=== PATIENT | male | born 1995 ===

== ENCOUNTER 2018-11-25 05:05 | Emergency (ER) | payer OTHER ==
[2018-11-25] MEDS ORDERED: Sodium Chloride 0.9% 1,000 ML IV STA (05:22)
--- NOTE | 2018-11-25 05:24 | ED PDOC ---
Arrival/HPI - General Chief Complaint: Abdominal Pain Time Seen by Provider: 11/25/18 05:10 Historian: Patient - History of Present Illness Narrative History of Present Illness (Text): 11/25/18 05:21 Refugio Khan is a 23 year old male, with no significant past medical history, who presents to the emergency department complaining of nausea and vomiting. 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 Patient states tonight he has been experiencing abdominal cramping discomfort and nausea with multiple episodes of vomiting and watery diarrhea. Patient denies any fever, chills, chest pain, shortness of breath, urinary symptoms, back pain, neck pain, headache, dizziness, or any other complaints. Symptom Onset: Gradual Symptom Course: Unchanged Activities at Onset: Light Context: Home Past Medical History - Provider Review Nursing Documentation Reviewed: Yes - Infectious Disease Hx of Infectious Diseases: None - Cardiac Hx Cardiac Disorders: No - Pulmonary Hx Respiratory Disorders: No - Neurological Hx Neurological Disorder: No - HEENT Hx HEENT Disorder: No - Psychiatric Hx Substance Use: No - Surgical History Hx Appendectomy: Yes - Anesthesia Hx Anesthesia: No Family/Social History - Physician Review Nursing Documentation Reviewed: Yes Family/Social History: Unknown Family HX Smoking Status: Never Smoked Hx Alcohol Use: No Hx Substance Use: No Allergies/Home Meds Allergies/Adverse Reactions: Allergies No Known Allergies Allergy (Verified 11/25/18 05:17) Home Medications: Home Meds Medication Instructions Recorded Confirmed No Known Home Med 11/25/18 11/25/18 Review of Systems - Physician Review All systems were reviewed & negative as marked: Yes - Review of Systems Constitutional: Normal. absent: Fevers Eyes: Normal ENT: Normal Respiratory: Normal. absent: SOB, Cough Cardiovascular: Normal. absent: Chest Pain Gastrointestinal: Abdominal Pain, Diarrhea, Nausea, Vomiting Genitourinary Male: Normal. absent: Dysuria, Frequency, Hematuria, Urinary Output Changes Musculoskeletal: Normal. absent: Back Pain, Neck Pain Skin: Normal. absent: Rash Neurological: Normal. absent: Headache, Dizziness Endocrine: Normal Hemo/Lymphatic: Normal Psychiatric: Normal Physical Exam Vital Signs Reviewed: Yes Vital Signs Temp Pulse Resp BP Pulse Ox 11/25/18 05:16 97.9 F 82 18 120/87 98 Temperature: Afebrile Blood Pressure: Normal Pulse: Regular Respiratory Rate: Normal Appearance: Positive for: Well-Appearing, Non-Toxic, Comfortable Pain Distress: None Mental Status: Positive for: Alert and Oriented X 3 - Systems Exam Head: Present: Atraumatic, Normocephalic Pupils: Present: PERRL Extroacular Muscles: Present: EOMI Conjunctiva: Present: Normal Mouth: Present: Moist Mucous Membranes Neck: Present: Normal Range of Motion Respiratory/Chest: Present: Clear to Auscultation, Good Air Exchange. No: Respiratory Distress, Accessory Muscle Use Cardiovascular: Present: Regular Rate and Rhythm, Normal S1, S2. No: Murmurs Abdomen: Present: Tenderness (mild mid abdominal), Normal Bowel Sounds. No: Distention, Peritoneal Signs, Rebound, Guarding Back: Present: Normal Inspection Upper Extremity: Present: Normal Inspection. No: Cyanosis, Edema Lower Extremity: Present: Normal Inspection. No: Edema Neurological: Present: GCS=15, CN II-XII Intact, Speech Normal Skin: Present: Warm, Dry, Normal Color. No: Rashes Psychiatric: Present: Alert, Oriented x 3, Normal Insight, Normal Concentration Medical Decision Making ED Course and Treatment: 11/25/18 05:21 Impression: 23 year old male complaining of abdominal cramping, nausea, vomiting, and diarrhea tonight. Plan: -- Labs, lipase -- IV fluids -- Pepcid -- Zofran -- Toradol -- Reassess and disposition Progress Notes: 11/25/18 07:00 Case endorsed to /pending CT Abdomen/Pelvis/reassess/final disposition - Scribe Statement The provider has reviewed the documentation as recorded by the Rachel Mora Provider Scribe Attestation: All medical record entries made by the Scribe were at my direction and personally dictated by me. I have reviewed the chart and agree that the record accurately reflects my personal performance of the history, physical exam, medical decision making, and the department course for this patient. I have also personally directed, reviewed, and agree with the discharge instructions and di sposition. Disposition/Present on Arrival - Present on Arrival Any Indicators Present on Arrival: No History of DVT/PE: No History of Uncontrolled Diabetes: No Urinary Catheter: No History of Decub. Ulcer: No History Surgical Site Infection Following: None - Disposition Have Diagnosis and Disposition been Completed?: No Diagnosis: Abdominal pain, Vomiting and diarrhea Disposition Time: 07:00 Patient Problems: Current Active Problems Problem Status Onset Abdominal pain Acute Condition: STABLE Forms: [employer] (I[place]ic)
[2018-11-25 05:39] LABS: MEAN CELL VOLUME 81.4 fl (80.0-105.0); MEAN CORPUSCULAR HEMOGLOBIN 27.9 pg (25.0-35.0); MEAN CORPUSCULAR HGB CONC 34.2 g/dl (31.0-37.0); MEAN PLATELET VOLUME 10.1 fl (7.0-11.0); RBC 5.38 10^6/uL (3.5-6.1); RED CELL DISTRIBUTION WIDTH 12.7 % (11.5-14.5); WHITE BLOOD COUNT 15.2 10^3/uL (4.5-11.0)
[2018-11-25 05:45] LABS: ALB/GLOB RATIO 1.5 (1.1-1.8); ALBUMIN 5.1 g/dL (3.0-4.8); ALT/SGPT 28 U/L (7-56); AST/SGOT 32 U/L (17-59); BLOOD UREA NITROGEN 19 mg/dL (7-21); CALCIUM 10.3 mg/dL (8.4-10.5); GFR NON-AFRICAN AMERICAN > 60; LIPASE 42 U/L (23-300)
[2018-11-25] MEDS ORDERED: Iohexol 350 MG/100 ML VIAL ONE (06:34)
--- NOTE | 2018-11-25 07:12 | ED PDOC ---
Physical Exam Vital Signs Reviewed: Yes Vital Signs Temp Pulse Resp BP Pulse Ox 11/25/18 05:16 97.9 F 82 18 120/87 98 Temperature: Afebrile Blood Pressure: Normal Pulse: Regular Respiratory Rate: Normal Appearance: Positive for: Well-Appearing, Non-Toxic, Comfortable Pain Distress: None Mental Status: Positive for: Alert and Oriented X 3 - Systems Exam Head: Present: Atraumatic, Normocephalic Pupils: Present: PERRL Extroacular Muscles: Present: EOMI Conjunctiva: Present: Normal Respiratory/Chest: Present: Clear to Auscultation, Good Air Exchange. No: Respiratory Distress, Accessory Muscle Use Cardiovascular: Present: Regular Rate and Rhythm, Normal S1, S2. No: Murmurs Abdomen: Present: Tenderness (Mild mid abdominal tenderness). No: Distention, Peritoneal Signs Upper Extremity: Present: Normal Inspection. No: Cyanosis, Edema Lower Extremity: Present: Normal Inspection. No: Edema Neurological: Present: GCS=15, CN II-XII Intact, Speech Normal Skin: Present: Warm, Dry, Normal Color. No: Rashes Psychiatric: Present: Alert, Oriented x 3, Normal Insight, Normal Concentration Medical Decision Making ED Course and Treatment: 11/25/18 07:10 Case endorsed to me by Dr. Darby for pending CT Abdomen/Pelvis, reassessment and final disposition. Patient is a 23 year old male who presented to the ED earlier today for evaluation of nausea and vomiting. Patient is currently resting in bed in no acute distress. Patient currently denies any new medical complaints. 11/25/18 07:21 CT of Abdomen/Pelvis reviewed by radiologist,shows: No evidence of acute abdominal or pelvic pathology. 11/25/18 07:25 Upon reassessment, patient informs improved symptoms and wants to go home. Patient will be discharged home with follow-up instructions with PMD. - Lab Interpretations Lab Results: 11/25/18 05:28 11/25/18 05:28 Lab Results 11/25/18 05:28: WBC 15.2 H, RBC 5.38, Hgb 15.0, Hct 43.8, MCV 81.4, MCH 27.9, MCHC 34.2, RDW 12.7, Plt Count 293, MPV 10.1 11/25/18 05:28: Sodium 139, Potassium 4.1, Chloride 104, Carbon Dioxide 23, Anion Gap 16, BUN 19, Creatinine 0.9, Est GFR ( Amer) > 60, Est GFR (Non- Af Amer) > 60, Random Glucose 158 H, Calcium 10.3, Total Bilirubin 1.2, AST 32, ALT 28, Alkaline Phosphatase 78, Total Protein 8.6 H, Albumin 5.1 H, Globulin 3.5, Albumin/Globulin Ratio 1.5, Lipase 42 - RAD Interpretation Radiology Orders: 11/25/18 05:54 ABD & PELVIS IV CONTRAST ONLY [CT] Stat Market Risk Specialist: Radiologist - Medication Orders Current Medication Orders: Discontinued Medications Famotidine (Pepcid) 20 mg IVP STAT STA Stop: 11/25/18 05:23 Last Admin: 11/25/18 05:31 Dose: 20 mg IVP Administration Document 11/25/18 05:31 AD (Rec: 11/25/18 05:[address]) Charges for Administration # of IVP Administrations 1 Sodium Chloride (Sodium Chloride 0.9%) 1,000 mls @ 999 mls/hr IV .Q1H1M STA Stop: 11/25/18 06:22 Last Admin: 11/25/18 05:30 Dose: 999 mls/hr eMAR Start Stop Document 11/25/18 05:30 AD (Rec: 11/25/18 05:[address] [facility]) Intravenous Solution Start Date 11/25/18 Start Time 05:30 Ketorolac Tromethamine (Toradol) 30 mg IVP ONCE ONE Stop: 11/25/18 05:23 Last Admin: 11/25/18 05:30 Dose: 30 mg MAR Pain Assessment Document 11/25/18 05:30 AD (Rec: 11/25/18 05:[address] [facility]) Pain Reassessment Is this a pain reassessment? No Description Intensity of Pain at present 8 IVP Administration Document 11/25/18 05:30 AD (Rec: 11/25/18 05:[address] [facility] [id number] Charges for Administration # of IVP Administrations 1 Ondansetron HCl (Zofran Inj) 4 mg IVP ONCE ONE Stop: 11/25/18 05:23 Last Admin: 11/25/18 05:30 Dose: 4 mg IVP Administration Document 11/25/18 05:30 AD (Rec: 11/25/18 05:30 AD [id number]) Charges for Administration # of IVP Administrations 1 - Scribe Statement The provider has reviewed the documentation as recorded by the Scribe Sonia Lion. All medical record entries made by the Scribe were at my direction and personally dictated by me. I have reviewed the chart and agree that the record accurately reflects my personal performance of the history, physical exam, medical decision making, and the department course for this patient. I have also personally directed, reviewed, and agree with the discharge instructions and disposition. Disposition/Present on Arrival - Present on Arrival Any Indicators Present on Arrival: No History of DVT/PE: No History of Uncontrolled Diabetes: No Urinary Catheter: No History of Decub. Ulcer: No History Surgical Site Infection Following: None - Disposition Have Diagnosis and Disposition been Completed?: Yes Diagnosis: Abdominal pain, Vomiting and diarrhea Disposition: HOME/ ROUTINE Disposition Time: 07:31 Condition: IMPROVED Discharge Instructions (ExitCare): Nausea and Vomiting, Adult (DC) Additional Instructions: SHARLA REDMAN, thank you for letting us take care of you today. The emergency medical care you received today was directed at your acute symptoms. If you were prescribed any medication, please fill it and take as directed. It may take several days for your symptoms to resolve. Return to the Emergency Dep artment if your symptoms worsen, do not improve, or if you have any other problems. Please contact your doctor or call one of the physicians/clinics you have been referred to that are listed on the Patient Visit Information form that is included in your discharge packet. Bring any paperwork you were given at discharge with you along with any medications you are taking to your follow up visit. Our treatment cannot replace ongoing medical care by a primary care provider outside of the emergency department. Thank you for allowing the [facility] team to be part of your care today. Drink fluids throughout the day to maintain hydration. Follow up with your primary care doctor if you have any concerns. Forms: [employer] ([place]), WORK NOTE
[2018-11-25 07:55] VITALS: BP 111/69; PULSE 76; RESP 16; TEMP 98.8; O2SAT 96
--- NOTE | 2018-11-25 09:16 | CT ---
Date of service: 11/25/2018 PROCEDURE: CT Abdomen and Pelvis with contrast HISTORY: abdominal pain COMPARISON: None available. TECHNIQUE: Contrast dose: 100 mL Omnipaque 350 Radiation dose: Total exam DLP = 294.07 mGy-cm. This CT exam was performed using one or more of the following dose reduction techniques: Automated exposure control, adjustment of the mA and/or kV according to patient size, and/or use of iterative reconstruction technique. FINDINGS: LOWER THORAX: No visible consolidation, pleural effusion, or pneumothorax. LIVER: Unremarkable. GALLBLADDER AND BILE DUCTS: Unremarkable. PANCREAS: Unremarkable. SPLEEN: Unremarkable. ADRENALS: Unremarkable. KIDNEYS AND URETERS: The kidneys enhance symmetrically. No hydronephrosis or obstructing calculus identified. VASCULATURE: No aortic aneurysm. No atherosclerotic calcification or mural plaque present. BOWEL: Stomach is nondistended. Lack of oral contrast limits evaluation for bowel pathology. Bowel loops appear within normal limits of caliber without evidence of obstruction. APPENDIX: The appendix is not identified. No secondary signs of acute appendicitis. PERITONEUM: No significant free fluid. No definite free air. LYMPH NODES: No bulky adenopathy identified. BLADDER: Unremarkable. REPRODUCTIVE: Unremarkable. BONES: No acute osseous abnormality is detected. OTHER FINDINGS: None. IMPRESSION: No acute abdominal or pelvic pathology identified. Preliminary impression was provided by [employer].
== END 2018-11-25 07:45 | disposition home or self-care (01) ==
LOC: ED 05:05 → MERGE 05:05 → ED 07:45
DX: R10.9 Unspecified abdominal pain (principal); R11.10 Vomiting, unspecified; R19.7 Diarrhea, unspecified
CPT/HCPCS: 74177; 80053; 83690; 85027; 96374; 96375; 99283; J1885; J2405; J7030; Q9967